=== PATIENT | female | born 1975 | race Caucasian/White ===

== ENCOUNTER 2018-12-04 08:08 | Day surgery (SDC) | payer BC ==
[~2018-12-04 08:08] MED LIST: ACETAMINOPHEN 325 MG TAB (POST-OP) PO; GENTAMICIN 0.3% 5 ML OPH (PRE-OP) OPER
[2018-12-04] MEDS: CIPROFLOXACIN 0.3% 2.5 ML OPH (PRE-OP) OPER (09:21)
[2018-12-04] MEDS: DICLOFENAC 0.1% 2.5 ML OPH (PRE-OP) OPER (09:21)
[2018-12-04] MEDS: TETRACAINE 0.5% 4 ML OPH (PRE-OP) OPER (09:21)
[2018-12-04] MEDS: PHENYLephrine 2.5% 15 ML OPH (PRE-OP) OPER (09:22)
[2018-12-04] MEDS: TROPICAMIDE 1% 15 ML OPH (PRE OP) OPER (09:22)
[2018-12-04] MEDS: CYCLOPENTOLATE 1% 2 ML OPH OPER (09:26)
[2018-12-04] MEDS ORDERED: LACTATED RINGER'S 1,000 ML IV (10:00)
[2018-12-04] MEDS ORDERED: MIDAZOLAM 1 MG/ML 2 ML INJ (10:33)
[2018-12-04] MEDS: LIDOCAINE 4% (MPF) 5 ML INJ INJ (11:04)
[2018-12-04] MEDS: TRYPAN BLUE 0.5 ML SYG IO (11:04)
[2018-12-04] MEDS: TETRACAINE 0.5% 4 ML OPH RIGHT EYE (11:05)
[2018-12-04] MEDS: NA HYALURONATE/CHONDROITIN 0.5 ML SYG RIGHT EYE (11:06)
[2018-12-04] MEDS: TOBRAMYCIN/DEXAMETH 3.5 GM OPH OINT RIGHT EYE (11:07)
[2018-12-04] MEDS ORDERED: OXYCODONE/ACETAMINOPHEN (5/325) TAB PO (11:30)
[2018-12-04] MEDS ORDERED: ONDANSETRON 4 MG INJ IV (11:30)
== END 2018-12-04 13:11 | disposition home or self-care (01) ==
LOC: SDS 08:08
DX: H26.8 Other specified cataract (principal); E03.9 Hypothyroidism, unspecified
CPT/HCPCS: 66984